=== PATIENT | female | born 1965 ===

== ENCOUNTER 2024-09-24 11:09 | Observation (INO) | payer OTHER ==
[2024-09-24] MEDS: ASPIRIN 81 MG PO STA (11:23)
[2024-09-24] MEDS: KETOROLAC 15 MG/ML 1 ML VIAL IVP STA (11:24)
[2024-09-24 11:28] LABS: Basophils # (A) 0.1 k/uL (0-0.2); Basophils % (A) 1 %; Eosinophils # (A) 0.1 k/uL (0-0.7); Eosinophils % (A) 1 %; HGB 13.1 gm/dL (11.4-16.0); Lymphocytes # (A) 3.2 k/uL (1.0-4.8); Lymphocytes % (A) 42 %; MCH 29.8 pg (25.0-35.0); MCHC 32.7 g/dL (31.0-37.0); MCV 91.1 fL (80.0-100.0); Mean Platelet Volume 7.3; Monocytes # (A) 0.3 k/uL (0-1.0); Monocytes % (A) 5 %; Neutrophils # (A) 3.6 k/uL (1.3-7.7); Neutrophils % (A) 48 %; Platelet Count 280 k/uL (150-450); RBC 4.39 m/uL (3.80-5.40); WBC 7.5 k/uL (3.8-10.6)
--- NOTE | 2024-09-24 11:33 | ED ---
General Adult HPI - General Chief complaint: Chest Pain Stated complaint: Chest Pain Time Seen by Provider: 09/24/24 11:10 Source: patient, EMS, RN notes reviewed Mode of arrival: EMS Limitations: language barrier - History of Present Illness Initial comments: Patient is a 58-year-old female present to the emergency department with concerns for chest discomfort. Onset of symptoms was this morning. Patient states discomfort worsens with deep breath and does radiate towards the back. No history of similar symptoms previously. Patient does feel a little bit short of breath. No nausea or vomiting. No sweating. Patient does speak Tajik however does speak American and does appear to understand and express herself well. - Related Data Home Medications Medication Instructions Recorded Confirmed Aspirin EC [Ecotrin Low Dose] 81 mg PO ONCE PRN 09/24/24 09/24/24 Levothyroxine Sodium [Synthroid] 50 mcg PO DAILY 09/24/24 09/24/24 Allergies Allergy/AdvReac Type Severity Reaction Status Date / Time No Known Allergies Allergy Verified 09/24/24 12:00 Review of Systems ROS Statement: Those systems with pertinent positive or pertinent negative responses have been documented in the HPI. ROS Other: All systems not noted in ROS Statement are negative. Constitutional: Denies: fever Eyes: Denies: eye pain ENT: Denies: ear pain Respiratory: Reports: as per HPI Cardiovascular: Reports: as per HPI, chest pain Endocrine: Denies: fatigue Gastrointestinal: Denies: abdominal pain Musculoskeletal: Reports: as per HPI Past Medical History Past Medical History: Thyroid Disorder Additional Past Medical History / Comment(s): gallstones History of Any Multi-Drug Resistant Organisms: None Reported Past Surgical History: No Surgical Hx Reported Past Psychological History: No Psychological Hx Reported Smoking Status: Never smoker Past Alcohol Use History: None Reported Past Drug Use History: None Reported General Exam Limitations: no limitations General appearance: alert Head exam: Present: normocephalic Eye exam: Present: normal appearance Neck exam: Present: normal inspection Respiratory exam: Present: normal lung sounds bilaterally, chest wall tenderness (Right posterior lateral ribs) Cardiovascular Exam: Present: regular rate, normal rhythm Expanded Peripheral pulses: 2+: Radial (R), Radial (L), Dorsalis Pedis (R), Dorsalis Pedis (L) GI/Abdominal exam: Present: soft. Absent: tenderness Extremities exam: Present: normal inspection. Absent: pedal edema, calf tenderness Neurological exam: Present: alert Psychiatric exam: Present: normal affect, normal mood Skin exam: Present: normal color Course Vital Signs 09/24/24 11:14 Temperature 98.2 F Pulse Rate 79 Respiratory 18 Rate Blood Pressure 125/78 O2 Sat by Pulse 98 Oximetry EKG Findings - EKG Results: EKG: interpreted by ERMD (Left axis), sinus rhythm, normal QRS, normal ST/T Medical Decision Making - Medical Decision Making Was pt. sent in by a medical professional or institution (, PA, CORRECTIONAL OFFICER CHIEF, urgent care, hospital, or fdc...) When possible be specific @ -No Did you speak to anyone other than the patient for history (EMS, parent, family, police, friend...)? What history was obtained from this source @ -EMS provides history of transport Did you review nursing and triage notes (agree or disagree)? Why? @ -I reviewed and agree with nursing and triage notes Were old charts reviewed (outside hosp., previous admission, EMS record, old EKG, old radiological studies, urgent care reports/EKG's, fdc records)? Report findings @ -No old charts were reviewed Differential Diagnosis (chest pain, altered mental status, abdominal pain women, abdominal pain men, vaginal bleeding, weakness, fever, dyspnea, syncope, headache, dizziness, GI bleed, back pain, seizure, CVA, palpatations, mental health, musculoskeletal)? @ -Differential Chest Pain: Stable Angina, Unstable Angina, STEMI, NSTEMI Aortic Dissection, Pneumothorax, Musculoskeletal, Esophageal Spasm GERD, Cholecystitis, Pancreatitis, Zoster, this is not meant to be an all-inclusive list. EKG interpreted by me (3pts min.). @ -As above X-rays interpreted by me (1pt min.). @ -Chest x-ray shows no acute process CT interpreted by me (1pt min.). @ -Consider CT scan of the chest however D-dimer is not elevated U/S interpreted by me (1pt. min.). @ -None done What testing was considered but not performed or refused? (CT, X-rays, U/S, labs)? Why? @ -None What meds were considered but not given or refused? Why? @ -None Did you discuss the management of the patient with other professionals (joseph mitchell i.e. , PA, CORRECTIONAL OFFICER CHIEF, lab, RT, psych nurse, social psychologist, criminal defense lawyer, teacher, railway patrol officer, cyanide case hardener)? Give summary @ -[facility] Dr. Ramon to admit covering Dr. Neumann Was smoking cessation discussed for >3mins.? @ -No Was critical care preformed (if so, how long)? @ -No Were there social determinants of health that impacted care today? How? (Homelessness, low income, unemployed, alcoholism, drug addiction, transportation, low edu. Level, literacy, decrease access to med. care, retirement, rehab)? @ -No Was there de-escalation of care discussed even if they declined (Discuss DNR or withdrawal of care, Hospice)? DNR status @ -No What co-morbidities impacted this encounter? (DM, HTN, Smoking, COPD, CAD, Cancer, CVA, ARF, Chemo, Hep., AIDS, mental health diagnosis, sleep apnea, morbid obesity)? @ -None Was patient admitted / discharged? Hospital course, mention meds given and route, prescriptions, significant lab abnormalities, going to OR and other pertinent info. @ -Patient presents with chest discomfort. No improvement with Toradol or nitro. Patient will be provided further medication. Patient will be admitted, admission orders written. Patient updated. Undiagnosed new problem with uncertain prognosis? @ -No Drug Therapy requiring intensive monitoring for toxicity (Heparin, Nitro, Insulin, Cardizem)? @ -No Were any procedures done? @ -No Diagnosis/sympt chest pain om? @ -Chest pain Acute, or Chronic, or Acute on Chronic? @ -Acute Uncomplicated (without systemic symptoms) or Complicated (systemic symptoms)? @ -Default Side effects of treatment? @ -No Exacerbation, Progression, or Severe Exacerbation? @ -No Poses a threat to life or bodily function? How? (Chest pain, [place], [place], pneumonia, PE, COPD, DKA, ARF, appy, cholecystitis, CVA, Diverticulitis, Homicidal, Suicidal, threat to staff... and all critical care pts) @ -Threat to cardiac function - Lab Data Result diagrams: 09/24/24 11:23 09/24/24 11:23 Lab Results 09/24/24 09/24/24 09/24/24 Range/Units 11:23 11:23 11:23 WBC 7.5 (3.8-10.6) k/uL RBC 4.39 (3.80-5.40) m/uL Hgb 13.1 (11.4-16.0) gm/dL Hct 40.0 (34.0-46.0) % MCV 91.1 (80.0-100.0) fL MCH 29.8 (25.0-35.0) pg MCHC 32.7 (31.0-37.0) g/dL RDW 13.0 (11.5-15.5) % Plt Count 280 (150-450) k/uL MPV 7.3 Neutrophils % 48 % Lymphocytes % 42 % Monocytes % 5 % Eosinophils % 1 % Basophils % 1 % Neutrophils # 3.6 (1.3-7.7) k/uL Lymphocytes # 3.2 (1.0-4.8) k/uL Monocytes # 0.3 (0-1.0) k/uL Eosinophils # 0.1 (0-0.7) k/uL Basophils # 0.1 (0-0.2) k/uL PT 11.6 (10.0-12.5) sec INR 1.1 (<1.2) APTT 22.7 (22.0-30.0) sec D-Dimer 0.36 (<0.60) mg/L FEU Sodium 136 L (137-145) mmol/L Potassium 4.0 (3.5-5.1) mmol/L Chloride 103 (98-107) mmol/L Carbon Dioxide 24 (22-30) mmol/L Anion Gap 9 mmol/L BUN 14 (7-17) mg/dL Creatinine 0.75 (0.52-1.04) mg/dL Est GFR (CKD-EPI)AfAm >90 (>60 ml/min/1.73 sqM) Est GFR (CKD-EPI)NonAf 89 (>60 ml/min/1.73 sqM) Glucose 106 H (74-99) mg/dL Calcium 9.8 (8.4-10.2) mg/dL Magnesium 2.1 (1.6-2.3) mg/dL Total Bilirubin 0.6 (0.2-1.3) mg/dL AST 28 (14-36) U/L ALT 23 (4-34) U/L Alkaline Phosphatase 84 (38-126) U/L Troponin I (0.000-0.034) ng/mL NT-Pro-B Natriuret Pep <20 pg/mL Total Protein 7.4 (6.3-8.2) g/dL Albumin 4.6 (3.5-5.0) g/dL Amylase 88 (30-110) U/L Lipase 137 (23-300) U/L 09/24/24 Range/Units 11:23 WBC (3.8-10.6) k/uL RBC (3.80-5.40) m/uL Hgb (11.4-16.0) gm/dL Hct (34.0-46.0) % MCV (80.0-100.0) fL MCH (25.0-35.0) pg MCHC (31.0-37.0) g/dL RDW (11.5-15.5) % Plt Count (150-450) k/uL MPV Neutrophils % % Lymphocytes % % Monocytes % % Eosinophils % % Basophils % % Neutrophils # (1.3-7.7) k/uL Lymphocytes # (1.0-4.8) k/uL Monocytes # (0-1.0) k/uL Eosinophils # (0-0.7) k/uL Basophils # (0-0.2) k/uL PT (10.0-12.5) sec INR (<1.2) APTT (22.0-30.0) sec D-Dimer (<0.60) mg/L FEU Sodium (137-145) mmol/L Potassium (3.5-5.1) mmol/L Chloride (98-107) mmol/L Carbon Dioxide (22-30) mmol/L Anion Gap mmol/L BUN (7-17) mg/dL Creatinine (0.52-1.04) mg/dL Est GFR (CKD-EPI)AfAm (>60 ml/min/1.73 sqM) Est GFR (CKD-EPI)NonAf (>60 ml/min/1.73 sqM) Glucose (74-99) mg/dL Calcium (8.4-10.2) mg/dL Magnesium (1.6-2.3) mg/dL Total Bilirubin (0.2-1.3) mg/dL AST (14-36) U/L ALT (4-34) U/L Alkaline Phosphatase (38-126) U/L Troponin I <0.012 (0.000-0.034) ng/mL NT-Pro-B Natriuret Pep pg/mL Total Protein (6.3-8.2) g/dL Albumin (3.5-5.0) g/dL Amylase (30-110) U/L Lipase (23-300) U/L Disposition Clinical Impression: Chest pain Disposition: ADMITTED IP TO THIS HOSP Is patient prescribed a controlled substance at d/c from ED?: No Referrals: Susie Fitzpatrick MD [Primary Care Provider] - 1-2 days Time of Disposition: 12:32
[2024-09-24 11:44] LABS: INR 1.1 (<1.2); Partial Thromboplastin Time 22.7 sec (22.0-30.0); Prothrombin Time 11.6 sec (10.0-12.5)
--- NOTE | 2024-09-24 11:51 | XR ---
EXAMINATION TYPE: XR chest 2V DATE OF EXAM: 09/24/2024 11:40 AM COMPARISON: None TECHNIQUE: XR chest 2V Frontal and lateral views of the chest. CLINICAL INDICATION:Female, 58 years old with history of Chest Pain; FINDINGS: Lungs/Pleura: There is no evidence of pleural effusion, focal consolidation, or pneumothorax. Pulmonary vascularity: Unremarkable. Heart/mediastinum: Cardiomediastinal silhouette is unremarkable. Musculoskeletal: No acute osseous pathology. IMPRESSION: No acute cardiopulmonary disease/process. [facility], , 09/24/2024 11:49 AM
[2024-09-24 11:53] LABS: ALT 23 U/L (4-34); AST 28 U/L (14-36); African American GFR (CKD) >90 (>60 ml/min/1.73 sqM); Albumin 4.6 g/dL (3.5-5.0); Alkaline Phosphatase 84 U/L (38-126); Amylase 88 U/L (30-110); Anion Gap 9 mmol/L; Blood Urea Nitrogen 14 mg/dL (7-17); Calcium 9.8 mg/dL (8.4-10.2); Carbon Dioxide 24 mmol/L (22-30); Chloride 103 mmol/L (98-107); Glucose 106 mg/dL (74-99); Lipase 137 U/L (23-300); Magnesium 2.1 mg/dL (1.6-2.3); Non-African American GFR(CKD) 89 (>60 ml/min/1.73 sqM); Sodium 136 mmol/L (137-145); Total Bilirubin 0.6 mg/dL (0.2-1.3); Total Protein 7.4 g/dL (6.3-8.2)
[2024-09-24 12:02] LABS: NT-Pro-B-Type Natriuretic Pept <20 pg/mL
[2024-09-24] MEDS ORDERED: NITROGLYCERIN SL TABS 0.4 MG TAB SUBLINGUAL PRN (12:32)
[2024-09-24] MEDS: MORPHINE SULFATE 4 MG/ML SYRINGE IVP STA (12:46)
--- NOTE | 2024-09-24 13:50 | P.HPIM ---
History of Present Illness H&P Date: 09/24/24 History of present illness; patient is 58-year-old lady with past medical history significant for hypothyroidism, prediabetes who presented the ER because of chest pain that started this morning. Patient stated that she was all right this morning when while making breakfast she started having chest pain that was central, pressure-like, constant, radiating to her back and aggravated by taking deep breaths. There was no complaint of shortness of breath at that time. There was no episode of diaphoresis during this episode of chest pain. There was no complaint of shortness of breath. There was no complaint of fever or chills. Patient denies any nausea, vomiting abdominal pain. Patient denies any altered bowel movements. Because of this chest pain, patient came to the ER Initial lab work done in the ER showed WBC 7.5, hemoglobin 13.1, platelet count 280, D-dimer 0.36, sodium 130s, potassium 4, BUN 14, creatinine 0.75, glucose 106, calcium 9.8, magnesium 2.1, AST 28, ALT 23, troponin 0.012, proBNP less than 20 lipase 137 EKG done in the ER showed heart rate of 69 , no ST segment elevation or depression seen, no T-wave inversions seen. Chest x-ray done in the ER showed no acute cardiopulmonary process Patient admitted to internal medicine service REVIEW OF SYSTEMS: CONSTITUTIONAL: No fever, no malaise, no fatigue. HEENT: No recent visual problems or hearing problems. Denied any sore throat. CARDIOVASCULAR: As mentioned above PULMONARY: As mentioned above GASTROINTESTINAL: No diarrhea, no nausea, no vomiting, no abdominal pain. NEUROLOGICAL: No headaches, no weakness, no numbness. HEMATOLOGICAL: Denies any bleeding or petechiae. GENITOURINARY: Denies any burning micturition, frequency, or urgency. MUSCULOSKELETAL/RHEUMATOLOGICAL: Denies any joint pain, swelling, or any muscle pain. ENDOCRINE: Denies any polyuria or polydipsia. The rest of the 14-point review of systems is negative. PHYSICAL EXAMINATION: GENERAL: The patient is alert and oriented x3, not in any acute distress. Well developed, well nourished. HEENT: Pupils are round and equally reacting to light. EOMI. No scleral icterus. No conjunctival pallor. Normocephalic, atraumatic. No pharyngeal erythema. No thyromegaly. CARDIOVASCULAR: S1 and S2 present. No murmurs, rubs, or gallops. PULMONARY: Chest is clear to auscultation, no wheezing or crackles. ABDOMEN: Soft, nontender, nondistended, normoactive bowel sounds. No palpable organomegaly. MUSCULOSKELETAL: No joint swelling or deformity. EXTREMITIES: No cyanosis, clubbing, or pedal edema. NEUROLOGICAL: Gross neurological examination did not reveal any focal deficits. SKIN: No rashes. Assessment and plan Chest pain, rule out acute coronary syndrome Prediabetes Hypothyroidism Monitor vital signs Monitor CBC Monitor CMP Continue telemetry monitoring Trend troponin Serial EKGs Order ultrasound of abdomen Ordered 2D echo Ordered lipid panel order HbA1c level Resume Synthroid Consult cardiology Labs and medication were reviewed.. Continue same treatment. Continue with symptomatic treatment. Resume home medication. Monitor labs and vitals. DVT and GI prophylaxis. Further recommendations as per clinical course of the patient Dictation was produced using [employer] dictation software. please excuse any grammatical, word or spelling errors. Past Medical History Past Medical History: Thyroid Disorder Additional Past Medical History / Comment(s): gallstones History of Any Multi-Drug Resistant Organisms: None Reported Past Surgical History: No Surgical Hx Reported Past Psychological History: No Psychological Hx Reported Smoking Status: Never smoker Past Alcohol Use History: None Reported Past Drug Use History: None Reported Medications and Allergies Home Medications Medication Instructions Recorded Confirmed Type Aspirin EC [Ecotrin Low Dose] 81 mg PO ONCE PRN 09/24/24 09/24/24 History Levothyroxine Sodium [Synthroid] 50 mcg PO DAILY 09/24/24 09/24/24 History Allergies Allergy/AdvReac Type Severity Reaction Status Date / Time No Known Allergies Allergy Verified 09/24/24 12:00 Physical Exam Vitals: Vital Signs Temp Pulse Resp BP Pulse Ox 09/24/24 12:49 80 18 143/95 100 09/24/24 12:36 63 18 119/80 99 09/24/24 11:14 98.2 F 79 18 125/78 98 Intake and Output 09/23/24 09/24/24 09/24/24 22:59 06:59 14:59 Other: Weight 62.596 kg Results CBC & Chem 7: 09/24/24 11:23 09/24/24 11:23 Labs: Abnormal Lab Results - Last 24 Hours (Table) 09/24/24 Range/Units 11:23 Sodium 136 L (137-145) mmol/L Glucose 106 H (74-99) mg/dL
--- NOTE | 2024-09-24 14:55 | US ---
EXAMINATION TYPE: US gallbladder DATE OF EXAM: 09/24/2024 COMPARISON: NONE CLINICAL INDICATION: Female, 58 years old with history of pain; Pain TECHNIQUE: Grayscale and color Doppler imaging of the right upper quadrant. FINDINGS: EXAM MEASUREMENTS: Liver Length: 13.6 cm Gallbladder Wall: 0.33 cm CBD: Difficult to determine. 2 Anechoic tubular areas seen in RUQ. One measures 2.3 cm and the other measures 0.77 cm - both area dilated. Right Kidney: 9.6 x 4.6 x 3.7 cm DIVISION CHAIR NOTES: Exam is limited due to gas. Pancreas: Not well seen. Duct measures 2.1 mm. Liver: Increased echogenicity, very coarse/heterogeneous in echotexture. *Hypoechoic area seen adj acent to the gallbladder: 5.5 x 1.6 x 1.6 cm. Gallbladder: Appears distended measuring 10.1 cm in length. *Multiple hyperechoic areas with director of corporate communications ior seen throughout the gallbladder, largest: 2.7 x 2.3 x 1.4 cm. Evidence for sonographic Barker's sign: No CBD: Unable to distinguish with certainty. Both possible measurements are dilated. Right Kidney: Anechoic area seen medially: 3.2 x 2.6 x 1.3 cm. Anechoic area in RUQ of unknown etiology: 2.3 x 3.7 x 5.9 cm. ??CBD versus other. Consider addition al imaging modality to confirm. IMPRESSION: 1. Hydropic gallbladder full of gallstones. No ultrasound evidence for acute cholecystitis. 2. Suggested dilatation of the common bile duct. Consider further evaluation with MRCP/ERCP to assess for choledocholithiasis. 3. Hepatic steatosis with focal fatty sparing. 4. Anechoic region within the right upper quadrant of unknown etiology. May represent the common bile duct versus cyst. This can be further evaluated on recommendation for #2. [facility], , 09/24/2024 2:53 PM
[2024-09-25] MEDS: LEVOTHYROXINE 50 MCG TAB PO SCH (05:52)
[2024-09-25 07:39] VITALS: RESP 16
[2024-09-25] MEDS: ASPIRIN 325 MG TAB PO SCH (09:33)
[2024-09-25] MEDS ORDERED: NON FORMULARY DRUG (Aspirin Ec 81 MG Tablet) PO PRN (09:53)
[2024-09-25] MEDS: KETOROLAC 15 MG/ML 1 ML VIAL IVP SCH (10:34)
[2024-09-25 10:47] LABS: Basophils # (A) 0.04 X 10*3/uL (0.00-0.10); Basophils % (A) 0.7 %; Eosinophils % (A) 1.7 %; HCT 38.6 % (37.2-46.3); HGB 12.7 g/dL (12.0-15.0); Lymphocytes % (A) 41.5 %; MCH 30.1 pg (27.0-32.0); MCHC 32.9 g/dL (32.0-37.0); MCV 91.5 FL (80.0-97.0); Mean Platelet Volume 10.4 FL (9.5-12.2); Monocytes # (A) 0.55 X 10*3/uL (0.20-1.00); Monocytes % (A) 9.1 %; NRBC Per 100 WBC 0 X 10*3/uL (0.00-0.01); Neutrophils # (A) 2.81 X 10*3/uL (1.80-7.70); Neutrophils % (A) 46.5 %; Platelet Count 252 X 10*3/uL (140-440); RBC 4.22 X 10*6/uL (4.10-5.20); RDW 12.9 % (11.5-14.5); WBC 6.03 X 10*3/uL (4.50-10.00)
[2024-09-25 10:57] LABS: ALT 21 U/L (8-44); AST 22 U/L (13-35); Albumin 4.1 g/dL (3.8-4.9); Albumin/Globulin Ratio 1.71 Ratio (1.60-3.17); Alkaline Phosphatase 76 U/L (41-126); Blood Urea Nitrogen 15.6 mg/dL (9.0-27.0); Calcium 9.6 mg/dL (8.7-10.3); Carbon Dioxide 23.8 mmol/L (21.6-31.8); Chloride 106 mmol/L (96-109); Chol/HDL Ratio 2.04 Ratio; Globulin 2.4 g/dL (1.6-3.3); Glucose 90 mg/dL (70-110); LDL Cholesterol,Calculated 77.8 mg/dL (0.0-131.0); Potassium 4.2 mmol/L (3.5-5.5); Sodium 141 mmol/L (135-145); Total Bilirubin 0.4 mg/dL (0.3-1.2); Total Protein 6.5 g/dL (6.2-8.2); VLDL Calculation 12.58 mg/dL (5.00-40.00)
--- NOTE | 2024-09-25 11:12 | CA ---
Transthoracic Echo Report Name: Ramya Yu Age: 58 Gender: F : 1965 Exam Date: 09/24/2024 15:41 Exam Location: [facility] Ht (in): 62 Wt (lb): 138 Ordering Physician: Masoud Segura MD Attending/Referring Phys: Community Aide Velma Swann RDCS Procedure CPT: Indications: Chest Pain Cardiac Hx: Technical Quality: Contrast 1: Total Dose (mL): Contrast 2: Total Dose (mL): MEASUREMENTS (Male / Female) Normal Values 2D ECHO LV Diastolic Diameter PLAX 3.9 cm 4.2 - 5.9 / 3.9 - 5.3 cm LV Systolic Diameter PLAX 2.5 cm IVS Diastolic Thickness 0.8 cm 0.6 - 1.0 / 0.6 - 0.9 cm LVPW Diastolic Thickness 0.8 cm 0.6 - 1.0 / 0.6 - 0.9 cm LV Relative Wall Thickness 0.4 RV Internal Dim ED PLAX 3.5 cm LA Systolic Diameter LX 3.3 cm 3.0 - 4.0 / 2.7 - 3.8 cm LV Diastolic Volume MOD 4C 42.1 cm??? LV Systolic Volume MOD 4C 19.1 cm??? LV Ejection Fraction MOD 4C 54.5 % LV Cardiac Index MOD 4C 825.2 cm???/min???m??? LV Diastolic Length 4C 8.0 cm LV Systolic Length 4C 6.5 cm LV Diastolic Volume MOD 2C 64.0 cm??? LV Systolic Volume MOD 2C 19.4 cm??? LV Ejection Fraction MOD 2C 69.6 % LV Cardiac Index MOD 2C 1603.8 cm???/min???m??? LV Diastolic Length 2C 7.5 cm LV Systolic Length 2C 6.0 cm LA Volume 27.7 cm??? 18 - 58 / 22 - 52 cm??? LA Volume Index 16.6 cm???/m??? 16 - 28 cm???/m??? M-MODE Aortic Root Diameter MM 2.9 cm AV Cusp Separation MM 1.9 cm DOPPLER AV Peak Velocity 132.7 cm/s AV Peak Gradient 7.0 mmHg MV Area PHT 2.5 cm??? Mitral E Point Velocity 76.1 cm/s Mitral A Point Velocity 84.2 cm/s Mitral E to A Ratio 0.9 MV Deceleration Time 309.5 ms TR Peak Velocity 206.9 cm/s TR Peak Gradient 17.1 mmHg Right Ventricular Systolic Press 21.4 mmHg FINDINGS Left Ventricle Left ventricular ejection fraction is estimated at 50 %. Left ventricular cavity size normal. Left ventricular wall thickness normal. Normal left ventricular wall motion. Right Ventricle Mild right ventricular dilatation. Right ventricular systolic pressure within normal limits. Right Atrium Normal right atrial size. No right atrial thrombus or mass seen. Left Atrium Normal left atrial size. No left atrial thrombus or mass present. Mitral Valve Structurally normal mitral valve. No evidence for mitral valve prolapse. No mitral stenosis. Trace mitral regurgitation. Aortic Valve Trileaflet aortic valve. No aortic valve stenosis or regurgitation. Tricuspid Valve Structurally normal tricuspid valve. Mild tricuspid regurgitation. Pulmonic Valve Pulmonic valve not well visualized. No pulmonic regurgitation. Pericardium No pericardial effusion. Aorta Normal size aortic root and proximal ascending aorta. CONCLUSIONS Low normal LV systolic function with EF at 50% No significant valvular abnormalities noted Mild RV enlargement Normal pulmonary artery systolic pressure No pericardial effusion Previewed by: Dr. Idris Tadeo MD (Electronically Signed) Final Date: 25 September 2024 11:11
--- NOTE | 2024-09-25 11:25 | P.CRDCN ---
History of Present Illness Consult date: 09/25/24 Consult reason: chest pain History of present illness: This is a 58-year-old female with past medical history of prediabetes, hypothyroidism. We have been asked to evaluate the patient for chest pain. Patient states that she developed pain in the right side of her chest went through to her back. She also could not breathe. She had onsets yesterday evening. The pain was under the right ribs as well. She states she had a little lightheadedness or dizziness. No syncopal episodes. Patient has had no previous cardiac history and does not follow with a manager of hospital. She denies history of hypertension. She is a non-smoker. Blood pressure 122/77, heart rate 63, pulse ox 100% on room air. -EKG: Nonspecific changes -Chest x-ray: No acute process -Ultrasound gallbladder reveals hydropic gallbladder full of gallstones. No ultrasound evidence of acute cholecystitis. Suggested dilatation of the common bile duct. Consider MRCP ERCP. Hepatic steatosis. Anechoic region within the right upper quadrant of unknown etiology. -Echocardiogram reveals EF 50%. No significant valvular abnormalities. Mild RV enlargement. Normal pulmonary artery systolic pressure. No pericardial effusion. -Laboratory studies: CBC, CMP normal. Troponin negative x 3. C-reactive protein less than 0.5. proBNP less than 20. Triglycerides 62, cholesterol 177, LDL 77, HDL 86. -Home cardiac medications: Aspirin 81 mg daily as needed, levothyroxine. Review Of Systems: At the time of my exam: CONSTITUTIONAL: Denies fever or chills. HEENT: Denies blurred vision, vision changes, or eye pain. Denies hemoptysis CARDIOVASCULAR: Denies chest pain. Denies orthopnea. Denies PND. Denies palpitations RESPIRATORY: Denies shortness of breath. GASTROINTESTINAL: Reports abdominal pain. Denies nausea or vomiting. HEMATOLOGIC: Denies bleeding disorders. GENITOURINARY: Denies any blood in urine. SKIN: Denies puritis. Denies rash. Physical examination: Gen: This is a 58-year-old female in no acute distress VS: reviewed HEENT: Head is atraumatic, normocephalic. Pupils equal, round. Sclerae is anicteric. NECK: Supple. No JVD. LUNGS: Clear to auscultation. No wheezes or rhonchi. No intercostal retractions. HEART: Regular rate and rhythm. No murmur. ABDOMEN: Soft No tenderness. + Barker sign EXTREMITIES: No pedal edema. No calf tenderness. NEUROLOGICAL: Patient is awake, alert and oriented x3. Assessment: Abdominal pain with positive Barker sign most likely due to gallbladder disease Hypothyroidism Prediabetes Plan: No further cardiac workup at this time Cardiology will sign off this case and follow on an as-needed basis. Please reconsult for any new concerns. Patient may follow-up in the office in 2-[address] Tadeo for possible outpatient workup. Thank you kindly for this consultation. Nurse practitioner note has been reviewed, I agree with documented findings and plan of care. Patient was seen and examined. Past Medical History Past Medical History: Thyroid Disorder Additional Past Medical History / Comment(s): gallstones History of Any Multi-Drug Resistant Organisms: None Reported Past Surgical History: No Surgical Hx Reported, Hysterectomy Past Anesthesia/Blood Transfusion Reactions: No Reported Reaction Past Psychological History: No Psychological Hx Reported Smoking Status: Never smoker Past Alcohol Use History: None Reported Past Drug Use History: None Reported Medications and Allergies Home Medications Medication Instructions Recorded Confirmed Type Aspirin EC [Ecotrin Low Dose] 81 mg PO ONCE PRN 09/24/24 09/24/24 History Levothyroxine Sodium [Synthroid] 50 mcg PO DAILY 09/24/24 09/24/24 History Allergies Allergy/AdvReac Type Severity Reaction Status Date / Time No Known Allergies Allergy Verified 09/24/24 12:00 Physical Exam Vitals: Vital Signs Temp Pulse Pulse Resp BP BP Pulse Ox 09/25/24 07:25 97.8 F 63 16 122/77 100 09/25/24 02:00 97.7 F 76 17 108/63 99 09/24/24 21:31 60 18 142/82 98 09/24/24 19:45 70 18 118/80 98 09/24/24 18:33 60 18 100/68 98 09/24/24 16:17 6 L 18 142/80 98 09/24/24 12:49 80 18 143/95 100 09/24/24 12:36 63 18 119/80 99 09/24/24 11:14 98.2 F 79 18 125/78 98 Intake and Output 09/24/24 09/25/24 09/25/24 22:59 06:59 14:59 Other: Voiding Method Toilet # Voids 2 Weight 62.596 kg Results 09/25/24 05:30 09/25/24 05:30 Cardiac Enzymes 09/24/24 09/24/24 09/24/24 Range/Units 11:23 11:23 14:15 AST 28 (14-36) U/L Troponin I <0.012 <0.012 (0.000-0.034) ng/mL 09/24/24 Range/Units 17:34 AST (14-36) U/L Troponin I <0.012 (0.000-0.034) ng/mL Coagulation 09/24/24 Range/Units 11:23 PT 11.6 (10.0-12.5) sec APTT 22.7 (22.0-30.0) sec CBC 09/24/24 Range/Units 11:23 WBC 7.5 (3.8-10.6) k/uL RBC 4.39 (3.80-5.40) m/uL Hgb 13.1 (11.4-16.0) gm/dL Hct 40.0 (34.0-46.0) % Plt Count 280 (150-450) k/uL Comprehensive Metabolic Panel 09/24/24 Range/Units 11:23 Sodium 136 L (137-145) mmol/L Potassium 4.0 (3.5-5.1) mmol/L Chloride 103 (98-107) mmol/L Carbon Dioxide 24 (22-30) mmol/L BUN 14 (7-17) mg/dL Creatinine 0.75 (0.52-1.04) mg/dL Glucose 106 H (74-99) mg/dL Calcium 9.8 (8.4-10.2) mg/dL AST 28 (14-36) U/L ALT 23 (4-34) U/L Alkaline Phosphatase 84 (38-126) U/L Total Protein 7.4 (6.3-8.2) g/dL Albumin 4.6 (3.5-5.0) g/dL Current Medications Generic Name Dose Route Start Last Admin Trade Name Freq PRN Reason Stop Dose Admin Aspirin 325 mg 09/25/24 09:00 09/25/24 09:33 Aspirin 325 Mg Tab PO 325 mg DAILY KASEY Administration Levothyroxine Sodium 50 mcg 09/25/24 06:30 09/25/24 05:52 Levothyroxine 50 Mcg Tab PO 50 mcg 0630 KASEY Administration Nitroglycerin 0.4 mg 09/24/24 12:32 Nitroglycerin Sl Tabs 0.4 Mg Tab SUBLINGUAL Q5M PRN Chest Pain Intake and Output 09/24/24 09/25/24 09/25/24 22:59 06:59 14:59 Other: Voiding Method Toilet # Voids 2 Weight 62.596 kg 09/24/24 11:23 09/24/24 11:23
[2024-09-25 12:10] LABS: Appearance,Urine Clear (Clear); Bilirubin,Urine Negative (Negative); Blood,Urine Negative (Negative); Color,Urine Colorless; Glucose,Urine (UA) Negative (Negative); Ketones,Urine Negative (Negative); Leukocyte Esterase,Urine Trace (Negative); Nitrite,Urine Negative (Negative); PH, Urine 6.5 (5.0-8.0); Protein,Urine Negative (Negative); RBC,Urine 1 /hpf (0-5); Specific Gravity,Urine 1.008 (1.001-1.035); Squamous Epithelial Cell,Urine <1 /hpf (0-4); Urobilinogen,Urine <2.0 mg/dL (<2.0); WBC,Urine 2 /hpf (0-5)
--- NOTE | 2024-09-25 12:12 | CT ---
EXAMINATION TYPE: CT abdomen pelvis w con CT DLP: 1103 mGycm, Automated exposure control for dose reduction was used. DATE OF EXAM: 09/25/2024 12:04 PM COMPARISON: Gallbladder ultrasound 09/24/2024 CLINICAL INDICATION:Female, 58 years old with history of Abdominal pain, gallstones; Abdominal pain, gallstones TECHNIQUE: Standard CT of the abdomen and pelvis following the administration of 100 cc of Isovue 3 00 IV contrast material. Coronal and sagittal reformats were performed. FINDINGS: LOWER CHEST: Minimal posterior dependent subsegmental atelectasis is noted. ABDOMEN LIVER: Diffusely hypoattenuating parenchyma. No focal lesion. GALLBLADDER AND BILE DUCTS: Multiple large gallstones demonstrated throughout the gallbladder measuri ng up to 2.5 cm. No wall thickening or surrounding inflammatory changes identified. No biliary ductal dilatation. PANCREAS: Unremarkable. SPLEEN: Unremarkable. ADRENAL GLANDS: Unremarkable. KIDNEYS AND URETERS: No evidence of hydronephrosis or renal calculus. The kidneys enhance symmetrical ly. Contrast is demonstrated within both collecting systems on the delayed phase. PELVIS BLADDER: Incompletely distended but grossly unremarkable. REPRODUCTIVE: Unremarkable. ABDOMEN & PELVIS STOMACH AND BOWEL: Stomach and duodenum are unremarkable. No focal bowel wall thickening or surroundi ng inflammatory changes. Distal colonic diverticulosis without evidence for acute diverticulitis. The appendix is within normal limits. No evidence of bowel obstruction. PERITONEUM: No evidence of pneumoperitoneum or free fluid. VASCULATURE: No evidence of aortic aneurysm. MUSCULOSKELETAL: No acute osseous abnormalities. Sacralization of L5 vertebral body. There is pseudoa rticulation of the bilateral facet joints with the sacrum with right greater than left. LYMPH NODES: No evidence for lymphadenopathy. SOFT TISSUE/ABDOMINAL WALL: Unremarkable IMPRESSION: 1. No acute abdominal/pelvic process. 2. Cholelithiasis. 3. Colonic diverticulosis without evidence for acute diverticular disease. 4. Hepatic stenosis. [facility], , 09/25/2024 12:09 PM
[2024-09-25 14:55] VITALS: BP 105/69; PULSE 78; TEMP 98.1
--- NOTE | 2024-09-25 14:55 | P.GSCN ---
History of Present Illness Consult date: 09/25/24 History of present illness: CHIEF COMPLAINT: Chest pain and abdominal pain HISTORY OF PRESENT ILLNESS: This is a 58-year-old female who presented to the hospital with complaints of chest pain, right upper quadrant abdominal pain and back pain. Patient reports that she has been having right upper quadrant abdominal pain since July. Pain is worse after eating. She is also having nausea and early fullness feeling. The chest pain and back pain started yesterday. Patient had a gallbladder ultrasound that did report hydropic gallbladder full of gallstones. Patient has past history of gallstones. Patient also complaining of pain across the lower abdomen and burning with urination. UA is to be collected. Patient's past surgical history includes tubal ligation. She reports her last colonoscopy was in 2018 and was negative. Patient seen by cardiology service and they have signed off. PAST MEDICAL HISTORY: Hypothyroidism PAST SURGICAL HISTORY: Tubal ligation MEDICATIONS: See below ALLERGIES: See below SOCIAL HISTORY: No illicit drug use. REVIEW OF SYSTEMS: CONSTITUTIONAL: Denies fever or chills. HEENT: Denies blurred vision, vision changes, or eye pain. Denies hemoptysis CARDIOVASCULAR: Denies chest pain or pressure. RESPIRATORY: No shortness of breath. GASTROINTESTINAL: See HPI for pertinent findings HEMATOLOGIC: Denies bleeding disorders. GENITOURINARY: Denies any blood in urine or increased urinary frequency. SKIN: Denies pruitis. Denies rash. PHYSICAL EXAM: VITAL SIGNS: Reviewed GENERAL: Well-developed in no acute distress. HEENT: No sclera icterus. Extraocular movements grossly intact. Moist buccal mucosa. Head is atraumatic, normocephalic. No nasal drainage. ABDOMEN: Soft. Nondistended. Tenderness with palpation of the right upper quadrant epigastric area and along the right side of the abdomen. Patient is also tender across the lower abdomen more in the right lower quadrant and suprapubic area. No rebound or guarding noted. NEUROLOGIC: Alert and oriented. Cranial nerves II through XII grossly intact. LABORATORY DATA: WBC is 6.03 Hgb 12.7 platelets 252 Sodium is 141 potassium is 4.2 creatinine 0.8 Troponins are negative x 3 LFTs are normal lipase 137 Urinalysis is negative for infection IMAGING: CT scan abdomen pelvis reports no acute abdominal pelvic process. Cholelithiasis. Diverticulosis without diverticulitis. Hepatic steatosis Gallbladder ultrasound reports hydropic gallbladder full of gallstones. No ultrasound evidence for acute cholecystitis. Suggested dilatation of the common bile duct. Hepatic steatosis. An Ellik region within the right upper quadrant unknown etiology. May represent common bile duct versus cyst. Echo EF 50%. No significant valvular abnormality ASSESSMENT: 1. Symptomatic cholelithiasis. Right upper quadrant and epigastric abdominal pain. Gallbladder ultrasound reporting hydropic gallbladder full of gallstones PLAN: -Recommend outpatient cholecystectomy -Patient is tolerating low-fat diet. She can be discharged from surgical standpoint with outpatient follow-up Physician Marketing Account Manager note has been reviewed by physician. Signing provider agrees with the documented findings, assessment, and plan of care. Past Medical History Past Medical History: Thyroid Disorder Additional Past Medical History / Comment(s): gallstones History of Any Multi-Drug Resistant Organisms: None Reported Past Surgical History: No Surgical Hx Reported, Hysterectomy Past Anesthesia/Blood Transfusion Reactions: No Reported Reaction Past Psychological History: No Psychological Hx Reported Smoking Status: Never smoker Past Alcohol Use History: None Reported Past Drug Use History: None Reported Medications and Allergies Home Medications Medication Instructions Recorded Confirmed Type Aspirin EC [Ecotrin Low Dose] 81 mg PO ONCE PRN 09/24/24 09/24/24 History Levothyroxine Sodium [Synthroid] 50 mcg PO DAILY 09/24/24 09/24/24 History Allergies Allergy/AdvReac Type Severity Reaction Status Date / Time No Known Allergies Allergy Verified 09/24/24 12:00 Surgical - Exam Vital Signs Temp Pulse Resp BP Pulse Ox 98.2 F 79 18 125/78 98 09/24/24 11:14 09/24/24 11:14 09/24/24 11:14 09/24/24 11:14 09/24/24 11:14 Results - Labs 09/25/24 05:30 09/25/24 05:30 Abnormal Lab Results - Last 24 Hours (Table) 09/24/24 09/25/24 Range/Units 11:23 05:30 Sodium 136 L (137-145) mmol/L Glucose 106 H (74-99) mg/dL HDL Cholesterol 86.60 H (40.00-60.00) mg/dL Diabetes panel 09/24/24 09/25/24 09/25/24 Range/Units 11:23 05:30 05:30 Sodium 136 L 141 (137-145) mmol/L Potassium 4.0 4.2 (3.5-5.1) mmol/L Chloride 103 106 (98-107) mmol/L Carbon Dioxide 24 23.8 (22-30) mmol/L BUN 14 15.6 (7-17) mg/dL Creatinine 0.75 0.8 (0.52-1.04) mg/dL Glucose 106 H 90 (74-99) mg/dL Hemoglobin A1c 5.6 (<=6.0) % Calcium 9.8 9.6 (8.4-10.2) mg/dL AST 28 22 (14-36) U/L ALT 23 21 (4-34) U/L Alkaline Phosphatase 84 76 (38-126) U/L Total Protein 7.4 6.5 (6.3-8.2) g/dL Albumin 4.6 4.1 (3.5-5.0) g/dL Triglycerides 62.90 (0.00-149.00) mg/dL HDL Cholesterol 86.60 H (40.00-60.00) mg/dL Calcium panel 09/24/24 09/25/24 Range/Units 11:23 05:30 Calcium 9.8 9.6 (8.4-10.2) mg/dL Albumin 4.6 4.1 (3.5-5.0) g/dL Pituitary panel 09/24/24 09/25/24 Range/Units 11:23 05:30 Sodium 136 L 141 (137-145) mmol/L Potassium 4.0 4.2 (3.5-5.1) mmol/L Chloride 103 106 (98-107) mmol/L Carbon Dioxide 24 23.8 (22-30) mmol/L BUN 14 15.6 (7-17) mg/dL Creatinine 0.75 0.8 (0.52-1.04) mg/dL Glucose 106 H 90 (74-99) mg/dL Calcium 9.8 9.6 (8.4-10.2) mg/dL Adrenal panel 09/24/24 09/25/24 Range/Units 11:23 05:30 Sodium 136 L 141 (137-145) mmol/L Potassium 4.0 4.2 (3.5-5.1) mmol/L Chloride 103 106 (98-107) mmol/L Carbon Dioxide 24 23.8 (22-30) mmol/L BUN 14 15.6 (7-17) mg/dL Creatinine 0.75 0.8 (0.52-1.04) mg/dL Glucose 106 H 90 (74-99) mg/dL Calcium 9.8 9.6 (8.4-10.2) mg/dL Total Bilirubin 0.6 0.4 (0.2-1.3) mg/dL AST 28 22 (14-36) U/L ALT 23 21 (4-34) U/L Alkaline Phosphatase 84 76 (38-126) U/L Total Protein 7.4 6.5 (6.3-8.2) g/dL Albumin 4.6 4.1 (3.5-5.0) g/dL
--- NOTE | 2024-09-25 15:31 | P.DS ---
Providers Date of admission: 09/24/24 12:34 Expected date of discharge: 09/25/24 Attending physician: Masoud Segura MD Consults: 09/24/24 12:33 Consult Physician Urgent Consulting Provider: Giovani Nye Consult Reason/Comments: cp Do you want consulting provider notified?: Yes 09/25/24 09:58 Consult Physician Urgent Consulting Provider: Marques Brown Consult Reason/Comments: Positive Barker's sign, Gallstones on US Do you want consulting provider notified?: Yes Primary care physician: [facility] Course: History of present illness; patient is 58-year-old lady with past medical history significant for hypothyroidism, prediabetes who presented the ER because of chest pain that started this morning. Patient stated that she was all right this morning when while making breakfast she started having chest pain that was central, pressure-like, constant, radiating to her back and aggravated by taking deep breaths. There was no complaint of shortness of breath at that time. There was no episode of diaphoresis during this episode of chest pain. There was no complaint of shortness of breath. There was no complaint of fever or chills. Patient denies any nausea, vomiting abdominal pain. Patient denies any altered bowel movements. Because of this chest pain, patient came to the ER Initial lab work done in the ER showed WBC 7.5, hemoglobin 13.1, platelet count 280, D-dimer 0.36, sodium 130s, potassium 4, BUN 14, creatinine 0.75, glucose 106, calcium 9.8, magnesium 2.1, AST 28, ALT 23, troponin 0.012, proBNP less than 20 lipase 137 EKG done in the ER showed heart rate of 69 , no ST segment elevation or depression seen, no T-wave inversions seen. Chest x-ray done in the ER showed no acute cardiopulmonary process Patient admitted to internal medicine service Discharge diagnoses; Chest pain, rule out ACS Prediabetes Hypothyroidism Cholelithiasis 09/25/2024 Patient seen and examined at bedside today. Labs today show WBC 6.3, hemoglobin 12.7, MCV 91.5, platelet 252. Sodium 141, potassium 4.2, chloride 106, bicarb 23.8, BUN 15.6, creatinine 15.6, glucose 90. Patient no longer endorses chest pain. Patient states abdominal pain is somewhat improved. Patient was evaluated by cardiology and cleared. Patient was evaluated by general surgery and cleared for outpatient follow-up. Patient will be discharged home today. Patient is advised to be compliant with medications. Patient is to follow a low-fat diet. Patient is advised to follow-up with PCP in 1 to 2 days. Patient is to follow-up with general surgery in 1 week. Physical Exam: General: non toxic, no distress, appears at stated age, normal weight Derm: no unusual rashes/lesions, warm Head: atraumatic, normocephalic, symmetric Eyes: EOMI, anicteric sclera, pupils equal round reactive to light ENT: Nose and ears atraumatic Neck: No cervical lymphadenopathy, trachea midline, supple Mouth: no lip lesion, mucus membranes moist Cardiovascular: S1S2 reg, no murmur, positive dorsalis pedis pulse bilateral, no edema Lungs: Equal air entry bilaterally, no rhonchi, no rales, no accessory muscle use Abdominal: Soft, non-distended, mild tenderness to palpation, positive Barker sign Extremities: fingers appear swollen without clubbing, no edema Neuro: CN II-XI grossly intact, no gross focal neuro deficits Psych: Alert, oriented, appropriate affect Dictation was produced using [employer] dictation software. please excuse any grammatical, word or spelling errors. A total of minutes of 20 minutes were spent preparing this complex discharge summary. Patient was discharged on 09/25/2024 at 1525. Attestation I have seen and examined this patient with my resident , discussed the same with the resident/LEO, and agree with the dictator's assessment and plan as written GENERAL: The patient is alert and oriented x3, not in any acute distress. Well developed, well nourished. HEENT: Pupils are round and equally reacting to light. EOMI. No scleral icterus. No conjunctival pallor. Normocephalic, atraumatic. No pharyngeal erythema. No thyromegaly. CARDIOVASCULAR: S1 and S2 present. No murmurs, rubs, or gallops. PULMONARY: Chest is clear to auscultation, no wheezing or crackles. ABDOMEN: Soft, nontender, nondistended, normoactive bowel sounds. No palpable organomegaly. MUSCULOSKELETAL: No joint swelling or deformity. EXTREMITIES: No cyanosis, clubbing, or pedal edema. NEUROLOGICAL: Gross neurological examination did not reveal any focal deficits. SKIN: No rashes. Dr. Masoud segura Patient Condition at Discharge: Stable Plan - Discharge Summary Discharge Rx Participant: No New Discharge Prescriptions: New traMADol HCL [traMADol HCL ER] 100 mg PO DAILY 7 Days #7 cap Continue Aspirin EC [Ecotrin Low Dose] 81 mg PO ONCE PRN PRN Reason: Chest Pain Levothyroxine Sodium [Synthroid] 50 mcg PO DAILY Discharge Medication List Aspirin EC [Ecotrin Low Dose] 81 mg PO ONCE PRN 09/24/24 [History] Levothyroxine Sodium [Synthroid] 50 mcg PO DAILY 09/24/24 [History] traMADol HCL [traMADol HCL ER] 100 mg PO DAILY 7 Days #7 cap 09/25/24 [Rx] Follow up Appointment(s)/Referral(s): Marques Brown DO [Doctor of Osteopathic Medicine] - 1 Week Susie Fitzpatrick MD [Primary Care Provider] - 1-2 days Patient Instructions/Handouts: Gallstones (DC), Low Fat Diet (DC) Discharge Disposition: HOME SELF-CARE
[2024-09-26] MEDS ORDERED: ASPIRIN 81 MG PO SCH (09:00)
== END 2024-09-25 18:10 | disposition home or self-care (01) ==
LOC: EDBD 11:09 → EC 11:09 → 6NMEDSUR 12:34
PROVIDERS: ADMIT Internal Medicine; ATTEND Internal Medicine
DX: R07.9 Chest pain, unspecified (principal); R73.03 Prediabetes; E03.9 Hypothyroidism, unspecified; K80.20 Calculus of gallbladder without cholecystitis without obstruction; K82.1 Hydrops of gallbladder; K76.0 Fatty (change of) liver, not elsewhere classified; Z79.890 Hormone replacement therapy; Z79.82 Long term (current) use of aspirin
CPT/HCPCS: 96376; 96374; 96375; 99285; 36415; 93005; 93306; 85379; 83880; 80061; 80053 ×2; 85652; 82150; 83690; 83735; 84484; 85025 ×2; 85610; 85730; 86140; 81001; 83036; 71046; 76705; 74177; G0378 ×2; J2270; J1885 ×2; Q9967

== ENCOUNTER 2024-10-20 10:57 | Day surgery (SDC) | payer SELFPAY ==
[2024-10-16 11:35] VITALS: BMI 26.4
[~2024-10-20 10:57] MED LIST: MIDAZOLAM 2 MG/2 ML VIAL IV PRN
[2024-10-20 11:41] VITALS: TEMP 97
[2024-10-20] MEDS: ONDANSETRON 4 MG/2 ML VIAL IVP ONE (11:59)
[2024-10-20] MEDS: DEXAMETHASONE SOD PHOSPHATE 4 MG/ML 1 ML VIAL IV ONE (11:59)
[2024-10-20] MEDS: INDOCYANINE GREEN 25 MG VIAL IV STA (12:02)
[2024-10-20] MEDS: LACTATED RINGERS 1,000 ML IV SCH (12:09)
[2024-10-20] MEDS: IV FLUID CONTINUATION 1,000 ML IV ONE ×2 (12:10→15:48)
[2024-10-20] MEDS: HEPARIN SODIUM,PORCINE 5,000 UNIT/ML 1 ML VIAL SQ STA (12:14)
[2024-10-20] MEDS ORDERED: LIDOCAINE 1% INJ 10MG/ML (20 ML MDV) ONE (12:43)
[2024-10-20] MEDS ORDERED: NEOSTIGMINE 1 MG/ML 10 ML VIAL ONE (12:43)
[2024-10-20] MEDS ORDERED: HYDROmorphone (PF) 1 MG/ML ONE (12:43)
[2024-10-20] MEDS ORDERED: GLYCOPYRROLATE 0.2 MG/ML 2 ML VIAL ONE (12:43)
[2024-10-20] MEDS ORDERED: ROCURONIUM 10 MG/ML (5 ML VIAL) IV ONE (12:43)
[2024-10-20] MEDS ORDERED: ESMOLOL 100 MG/10 ML VIAL ONE (12:43)
[2024-10-20] MEDS ORDERED: MIDAZOLAM 2 MG/2 ML VIAL ONE (12:43)
[2024-10-20] MEDS ORDERED: SUCCINYLCHOLINE CHLORIDE 200 MG/10 ML VIAL IV ONE (12:43)
[2024-10-20] MEDS ORDERED: PROPOFOL 10 MG/ML 20 ML VIAL IV ONE (12:43)
[2024-10-20] MEDS ORDERED: fentaNYL (PF) 50 MCG/ML 2 ML AMP ONE (12:43)
[2024-10-20] MEDS: BUPIVACAINE (PF) 0.25% 30 ML VIAL SQ ONE (13:04)
[2024-10-20] MEDS: HYDROmorphone 0.5 MG/0.5 ML SYRINGE IVP PRN (14:58)
--- NOTE | 2024-10-20 15:16 | P.OP ---
Date of Procedure: 10/20/24 Preoperative Diagnosis: Chronic calculus cholecystitis Postoperative Diagnosis: Chronic calculus cholecystitis Procedure(s) Performed: Robotic cholecystectomy Anesthesia: JORGE LUIS Surgeon: Yefri Glass Pathology: other (Gallbladder and contents) Condition: stable Disposition: same day Indications for Procedure: 58-year-old female presented to the surgery clinic with complaints of right upper quadrant pain and on workup was found to have cholelithiasis. Plan is for robotic cholecystectomy secondary to chronic calculus cholecystitis. Risks, benefits and alternatives were provided to the patient. All questions were answered. Operative Findings: Significantly distended gallbladder with large gallstones Description of Procedure: Patient was brought to the operating suite and placed in supine position on the operating table. Sedation was provided by anesthesia and the patient underwent endotracheal intubation. The patient was then prepped and draped in regular sterile fashion. An infraumbilical incision was made and dissection was carried to the fascia. The fascia was incised and an 8 mm trocar was placed. Pneumoperitoneum was achieved. The patient was then placed in appropriate position. 2 additional 8 mm trocars were placed in the right upper quadrant and 1 in the left upper quadrant. Robot was then docked. The gallbladder was then grasped and retracted superiorly and laterally. The gallbladder appeared distended with large stones noted. Dissection was carried along the infundibulum towards the cystic duct and the cystic duct was skeletonized. The cystic artery was similarly skeletonized and critical view was obtained. ICG was used to confirm anatomy. 2 clips were placed proximally on the cystic duct and 1 was placed distally and the cystic duct was ligated. Similarly, 2 clips were placed proximally on the cystic artery and 1 was placed distally and the cystic artery was ligated. Cautery was then used to dissect the gallbladder off of the gallbladder fossa. The gallbladder was then placed in an Endo Catch bag and removed from the abdomen from the infraumbilical incision site. Irrigation was placed in the right upper quadrant and suction. Hemostasis was noted to be maintained. No bile leakage was noted. The infraumbilical fascial incision was closed under direct visualization using an 0 Vicryl suture and Bebeto-Scott device. Pneumoperitoneum was released. All ports removed from the abdomen. All port sites were closed with 4-0 Vicryl subcuticular suture. Sterile dressing was applied. The patient was taken to postanesthesia care unit in stable condition. Sponge and instrument count correct x 2.
[2024-10-20] MEDS: KETOROLAC 15 MG/ML 1 ML VIAL IVP STA (15:27)
[2024-10-20] MEDS: droPERidol 2.5 MG/ML VIAL IVP ONE (17:48)
[2024-10-20] MEDS: SCOPOLAMINE 1 MG/72 HR PATCH TRANSDERM ONE (18:27)
[2024-10-20] MEDS: diphenhydrAMINE 50 MG/ML 1 ML VIAL IVP STA (18:28)
[2024-10-20 19:21] VITALS: BP 134/84; PULSE 97; RESP 14
[2024-10-20] MEDS: MECLIZINE 25 MG TAB PO STA (19:36)
== END 2024-10-20 19:58 | disposition home or self-care (01) ==
LOC: OR 10:57
PROVIDERS: ATTEND Surgery
DX: K80.10 Calculus of gallbladder with chronic cholecystitis without obstruction (principal)
CPT/HCPCS: 47562; S2900; 88304